=== PATIENT | female | born 1960 | race Caucasian/White ===

== ENCOUNTER → 2020-10-07 09:16 | Outpatient (CLI) | payer OTHER, SELFPAY ==
[2020-10-07 10:34] LABS: Free T4 (Free Thyroxine) 1.33 ng/dl (0.78-2.19)
[2020-10-07 10:48] LABS: Thyroid Stimulating Hormone 0.23 uIU/mL (0.465-4.68)
== END ==
PROVIDERS: Visit Provider Otolaryngology
DX: E03.9 Hypothyroidism, unspecified (principal); R13.10 Dysphagia, unspecified
CPT/HCPCS: 36415; 84439; 84443

== ENCOUNTER → 2020-11-01 07:55 | Outpatient (CLI) | payer OTHER, SELFPAY ==
--- NOTE | 2020-11-01 08:06 | FL_ITS ---
PROCEDURE: FL BARIUM SWALLOW CLINICAL INDICATION: diff swallowing COMPARISON: No exams were available for comparison TECHNIQUE: In the upright position the patient was observed to swallow barium in both the AP and lateral view. The cervical esophagus was examined under fluoroscopy with images obtained. The patient was then placed prone in the right anterior oblique position and was observed to swallow barium with Valsalva technique . FLUOROSCOPY TIME: 1.04 minutes FINDINGS: There was no evidence of aspiration. There was normal peristalsis. No filling defects or mucosal abnormalities. No masses or strictures. No evidence of hiatal hernia. Reflux was not demonstrated during the exam. IMPRESSION: Negative barium swallow. Dictated by: Aristides Méndez MD 11/01/2020 09:54 Aristides Méndez MD in [place] 11/01/2020 09:54
--- NOTE | 2020-11-01 08:15 | US_ITS ---
PROCEDURE: US THYROID CLINICAL INDICATION: diff swallowing COMPARISON: No exams were available for comparison FINDINGS: The isthmus has an unremarkable appearance. The right lobe has been removed. The left lobe is 4.6 x 1.2 x 2.3 cm with heterogeneous echogenicity. In the upper pole there is a heterogeneous area of echogenicity measuring approximately 12 mm . This is not as distinct as 1 would suspect for a nodule and may only represent an area heterogeneous echogenicity. In the mid polar region there is a 13 by 15 mm slightly hypoechoic nodule TR level 3. This also may be due to an area of heterogeneous echogenicity. In the midpole on the left there is a 6 mm cyst. In the lower pole there is a spongiform nodule which is 7 mm. IMPRESSION: Status post right thyroidectomy. Multinodular appearance of the left lobe of the thyroid gland as described above. Suggest annual follow-up regarding TR level 3 nodules. Dictated by: Aristides Méndez MD 11/01/2020 12:46 Aristides Méndez MD in [place] 11/01/2020 12:46
== END ==
PROVIDERS: PCP Family Medicine; Visit Provider Otolaryngology
DX: R13.10 Dysphagia, unspecified (principal); E03.9 Hypothyroidism, unspecified
CPT/HCPCS: 74220; 76536

== ENCOUNTER → 2020-11-07 08:17 | Outpatient (CLI) | payer OTHER, SELFPAY ==
[2020-11-07 09:00] VITALS: PULSE 74; PULSE 76
--- NOTE | 2020-11-07 09:49 | RESP.PFTSS ---
Patient effort was poor. She was unable to exhale appropriate length of time. Patient had issues following commands.
== END ==
PROVIDERS: PCP Family Medicine; Visit Provider Internal Medicine Pulmonary Disease
DX: R06.00 Dyspnea, unspecified (principal)
CPT/HCPCS: 94060; 94618; 94640

== ENCOUNTER 2020-12-14 12:26 | Emergency (ER) | payer OTHER, SELFPAY ==
[2020-12-14 12:27] VITALS: BP 161/69; PULSE 84; RESP 18; TEMP 36.9; O2SAT 100; BMI 40.3
--- NOTE | 2020-12-14 12:38 | HMH.EDSOB ---
ED Disposition Clinical Impression: Bronchitis Disposition: Home, Self-Care Condition on Discharge: Good Instructions: Acute Bronchitis Additional Instructions: Take all medications as prescribed. Return to the emergency department if you feel worse in any way. Follow-up with your regular doctors as needed and as scheduled. Referrals: Bernadette Colin [Primary Care Provider] - - Critical Care Critical Care Time: No Attestation: On 12/14/20, the high probability of a clinically significant, sudden or life threatening deterioration of the following system(s) required my full and direct attention, intervention and personal management. The time I documented below is in addition to time spent performing reported procedures but includes the following listed in this critical care notation. Medical Decision Making - Eric Inquiry Pt receiving controlled substance: No Vital Signs: 12/14/20 12:27 Temperature 98.4 F Temperature Source Oral Pulse Rate [Left Radial] 84 Respiratory Rate 18 Blood Pressure [Right Arm] 161/69 H Blood Pressure Mean [Right Arm] 99 Blood Pressure Source [Right Arm] Automatic Cuff Blood Pressure Position [Right Arm] Sitting 02 Sat by Pulse Oximetry 100 Oxygen Delivery Method Room Air Medical Decision Narrative: The patient's physical exam is unremarkable. The patient has a history of asthma. Her oxygen saturations are 100 percent on room air. She is mildly hypertensive. I do not see any reason to obtain blood work and or radiologic imaging studies. The patient will be given Solu-Medrol intramuscularly to last her until tomorrow when she can fill her prescription. Resp/SOB HPI - General Chief Complaint: Shortness of Breath/Dyspnea Stated Complaint: soa Time Seen by Provider: 12/14/20 12:38 Mode of Arrival: Ambulatory Source of Information: Patient - History of Present Illness The patient presents to the emergency department from her [facility] office. She has a history of asthma. Is that she is feeling short of breath. The core composer feeder has already prescribed her a steroid course but she has not yet filled that prescription. She came straight to the emergency department. She denies any fevers. She does complain of some coughing. It is nonproductive. She had COVID-19 in May of this month. MD Complaint: shortness of breath, cough - Related Data Home Medications Medication Instructions Recorded Confirmed cholecalciferol (vitamin D3) 10 2,000 unit PO DAILY cap 09/08/20 12/14/20 mcg (400 unit) capsule ciclesonide 80 mcg/actuation 1 puff INHALATION BID 09/08/20 12/14/20 aerosol inhaler dupilumab 200 mg/1.14 mL 200 mg SQ Q2W 09/08/20 12/14/20 subcutaneous syringe fluticasone fur. 100 mcg-umeclid 1 inh INHALATION DAILY 09/08/20 12/14/20 62.5 mcg-vilant 25 mcg inhalat.powder montelukast 10 mg tablet 10 mg PO DAILY 09/08/20 12/14/20 loratadine 10 mg tablet 10 mg PO DAILY tab 10/07/20 12/14/20 meloxicam 15 mg tablet 15 mg PO DAILY tab 10/07/20 12/14/20 omeprazole 20 mg capsule,delayed 20 mg PO cap 11/01/20 12/14/20 release Previous Rx's Medication Instructions Recorded albuterol sulfate 90 mcg/actuation 1 inh INHALATION QID PRN #8.5 g 09/08/20 aerosol inhaler levothyroxine 100 mcg tablet 100 mcg PO DAILY #90 tab 11/01/20 prednisone 20 mg tablet 40 mg PO DAILY PRN 5 Days #10 tab 12/14/20 Allergies Allergy/AdvReac Type Severity Reaction Status Date / Time No Known Allergies Allergy Verified 12/14/20 10:31 [facility] History - Hepatitis A Screen Drug use history?: No Attestation statement:: This patient has been screened for Hepatitis A risk factors. I have reviewed the patient's past medical history: Yes Medical History: Reports:: Asthma, Gastroesophageal Reflux Disease(GERD) Other Medical History: Reports: Hypothyroidism Other Surgeries: Yes: Other - Social History Smoking Status: Never smoker Alcohol Intake: current Alc
[2020-12-14 13:03] VITALS: BP 161/69; PULSE 79; RESP 20; TEMP 36.9; O2SAT 99
== END 2020-12-14 13:04 | disposition home or self-care (01) ==
PROVIDERS: Emergency Provider Emergency Medicine; PCP Family Medicine
DX: J20.9 Acute bronchitis, unspecified (principal); J45.909 Unspecified asthma, uncomplicated; E03.9 Hypothyroidism, unspecified; K21.9 Gastro-esophageal reflux disease without esophagitis
CPT/HCPCS: 96372; 99281